=== PATIENT | female | born 1975 | race Caucasian/White ===

== ENCOUNTER 2022-12-23 17:03 | Emergency (ER) | payer OTHER, SELFPAY ==
--- NOTE | ~2022-12-23 | XR_ITS ---
EXAMINATION: XR foot RT min 3V DATE: 12/23/2022 17:29 INDICATION: Right foot pain, initial encounter TECHNIQUE: Dorsoplantar, lateral, and 2 oblique views of the right foot were obtained. COMPARISON: None. FINDINGS: There is an oblique intra-articular fracture at the lateral base of the fifth metatarsal. L inear heterotopic ossification is seen adjacent to the dorsolateral aspect of the anterior calcaneus. There is mild osteoarthritis of multiple interphalangeal joints. There is soft tissue swelling of th e foot and ankle. A plantar calcaneal enthesophyte is noted. IMPRESSION: 1. Oblique intra-articular fracture at the lateral base of the fifth metatarsal. 2. 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 Reviewed, dictated and finalized at location F. IMPRESSION: 1. Oblique intra-articular fracture at the lateral base of the fifth metatarsal . 2. 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
--- NOTE | ~2022-12-23 | XR_ITS ---
EXAMINATION: XR ankle RT min 3V INDICATION: Right ankle pain, initial encounter TECHNIQUE: Four views of the right ankle are obtained. COMPARISON: None available FINDINGS: There is a linear area of heterotopic ossification projecting at the is dorsolateral aspect of the distal calcaneus. Also seen is a nondisplaced oblique fracture at the lateral base of the fif th metatarsal. There is soft tissue swelling of the ankle and proximal foot. IMPRESSION: 1. Oblique intra-articular fracture at the lateral base of the fifth metatarsal. 2. Findings consistent with avulsion injury at the dorsolateral aspect of the distal calcaneus. Reviewed, dictated and finalized at location F. IMPRESSION: 1. Oblique intra-articular fracture at the lateral base of the fifth metatarsal . 2. Findings consistent with avulsion injury at the dorsolateral aspect of the d istal calcaneus.
[2022-12-23 17:11] VITALS: PULSE 84; RESP 16; TEMP 37.3; O2SAT 100
[2022-12-23 17:12] VITALS: BP 114/78
--- NOTE | 2022-12-23 17:13 | ED.FALL ---
HPI - Fall General Chief Complaint: Fall Stated Complaint: fall,rt ankle,neck pain Time Seen by Provider: 12/23/22 17:09 Source: patient Mode of arrival: ambulatory Limitations: no limitations History of Present Illness HPI Narrative: patient is a 47-year-old female that presents with right ankle pain after stepping down off a step and rolling ankle outward and then proceeded to fall. denies hitting his head or any other part of her body rash. The patient reports pain is to the outside of her ankle and it hurts to turn inward and bend toes. patient states she is unable to bear weight due to pain. Patient reports pain intermittently radiates up to knee and down to toes from ankle. She has not taken anything for pain. patient also reports right-sided neck pain. Is able to turn head in both directions and up and down with no pain. denies any numbness or tingling down upper extremities. Related Data Allergies Allergy/AdvReac Type Severity Reaction Status Date / Time Penicillins Allergy Mild Other Unverified 12/23/22 17:18 Review of Systems Review of Systems: All systems reviewed & are unremarkable except as noted in HPI and below Constitutional: Constitutional: Denies body ache(s), Denies fever(s), Denies headache(s), Denies malaise and Denies weakness Eyes: Eyes: Denies loss of vision ENT: Denies otalgia, Denies headache(s), Denies nasal discharge, Denies sinus pain and Denies sore throat Cardiovascular: Cardiovascular: Denies chest pain, Denies irregular heart rhythm and Denies dyspnea Respiratory: Respiratory: Denies dyspnea Gastrointestinal: Gastrointestinal: Denies abdominal pain, Denies melena, Denies hematochezia, Denies diarrhea, Denies nausea and Denies vomiting Musculoskeletal: Musculoskeletal: Denies back pain, Denies myalgias, Denies deformity, Reports arthralgias ( right ankle) and Reports joint swelling ( right ankle) Integumentary/Breasts: Skin/Breast: Denies pruritus and Denies rash Neurologic: Denies headache(s), Denies loss of vision and Denies weakness Psychiatric: Psychiatric: Reports no additional psychiatric complaints PMFSH Comments At time of signature, agree with nursing past medical, surgical, social and family history. There is no relevant family history pertinent to the presenting complaint. Exam Const: General: cooperative, healthy appearing, comfortable, no acute distress and well nourished Nutritional Appearance: well nourished Orientation/consciousness: patient oriented x3 Limitations: no limitations HENMT: Head: normal to inspection, normocephalic and atraumatic Ears: external ears normal Face/Nose/Sinus: Normal external nose present, normal facial exam and face symmetric Face and sinus: normal facial exam and face symmetric Mouth: Yes lip normal Eyes: General: appearance normal, both eyes and all related structures Alignment and Position: alignment normal and position normal Periorbital: periorbital findings normal Eyelids: eyelids normal Pupils: Equal, round and reactive pupils present EOM: EOMs intact bilaterally Neck: Neck: normal visual inspection, full ROM, no lymphadenopathy, supple and tender ( patient to right cervical paraspinal muscles) Chest: Chest palpation & inspection: normal inspection of the chest Resp: Effort & Inspection: normal respiratory effort and able to speak in complete sentences Auscultation: clear to auscultation bilaterally Cardio: Rate: regular rate Rhythm: regular rhythm Heart sounds: S1 normal heart sound present and S2 normal heart sound present GI: Inspection: normal to inspection Skin: General skin exam: normal color and no rashes or lesions noted Neuro: General: patient oriented x3 and moves all extremities Cranial nerves: Yes Equal, round and reactive pupils present Speech: normal speech Gait exam (Neuro): Normal gait present Extrem: General: normal to inspection, full ROM and no edema Right lower extremity: ankle Details: tendern
== END 2022-12-23 18:22 | disposition home or self-care (01) ==
PROVIDERS: Emergency Provider Nurse Practitioner Family
DX: S92.351A Displaced fracture of fifth metatarsal bone, right foot, initial encounter for closed fracture (principal); X50.9XXA Other and unspecified overexertion or strenuous movements or postures, initial encounter
CPT/HCPCS: 29515; 73610; 73630; 99214; G0463